=== PATIENT | male | born 1975 | race Caucasian/White ===

== ENCOUNTER 2017-03-31 12:59 | Day surgery (SDC) | payer OTHER ==
[~2017-03-31] VITALS: Ht 165.1 cm; Wt 98.3 kg
[2017-03-31 13:31] VITALS: BP 129/81; PULSE 62; TEMP 98.3
[2017-03-31] MEDS ORDERED: CIPRO 500MG TA500 MG PO (13:36)
[2017-03-31] MEDS ORDERED: NORCO 325 MG-7.1 TAB PO (13:37)
[2017-03-31 18:41] VITALS: BP 140/94; PULSE 60; TEMP 97.2
== END 2017-03-31 20:35 | disposition home or self-care (01) ==
LOC: SDCO 12:59 → SURG 18:35 → SDCO 20:35
DX: N20.1 Calculus of ureter (principal); Q63.1 Lobulated, fused and horseshoe kidney; I10 Essential (primary) hypertension; G47.33 Obstructive sleep apnea (adult) (pediatric); G43.909 Migraine, unspecified, not intractable, without status migrainosus; Z80.9 Family history of malignant neoplasm, unspecified; Z80.1 Family history of malignant neoplasm of trachea, bronchus and lung; Z83.3 Family history of diabetes mellitus
CPT/HCPCS: OP; C1769; C1894; C2617; J0690; J1100; J1170; J2270; J2405; J2704; J3010; J7120

== ENCOUNTER → 2017-06-16 | Outpatient (REF) ==
[~2017-06-16] MED LIST: CIPRO 500MG TA500 MG PO; NORCO 325 MG-7.1 TAB PO
== END ==
LOC: WSOH 10:26
DX: Z02.89 Encounter for other administrative examinations (principal)

== ENCOUNTER 2017-10-28 15:11 | Observation (INO) | payer OTHER ==
[2017-10-28] VITALS (7 sets, daily range): BP systolic 129–147; BP diastolic 77–88; PULSE 65–72; TEMP 97.7–98.5
[~2017-10-28] VITALS: Ht 165.1 cm; Wt 99.0 kg
[2017-10-28] MEDS ORDERED: FLOMAX 0.40.4 MG/CAP PO (16:37)
== END 2017-10-28 23:20 | disposition home or self-care (01) ==
LOC: SDCO 15:11 → SURG 20:44
DX: N20.1 Calculus of ureter (principal); I10 Essential (primary) hypertension; G47.33 Obstructive sleep apnea (adult) (pediatric); K21.9 Gastro-esophageal reflux disease without esophagitis; G43.909 Migraine, unspecified, not intractable, without status migrainosus; Z98.52 Vasectomy status; Z87.442 Personal history of urinary calculi; Z80.1 Family history of malignant neoplasm of trachea, bronchus and lung; Z83.3 Family history of diabetes mellitus
CPT/HCPCS: C1769; C2617; J0360; J0690; J1100; J1170; J2405; J2704; J3010; J7120; Q9967

== ENCOUNTER 2018-06-08 10:48 | Day surgery (SDC) | payer OTHER ==
[~2018-06-08] VITALS: Ht 165.1 cm; Wt 97.7 kg
[~2018-06-08 10:48] MED LIST changes: +FLOMAX 0.40.4 MG/CAP PO
[2018-06-08 11:06] VITALS: BP 126/89; PULSE 62; TEMP 98.1
[2018-06-08] MEDS ORDERED: ULTRAM 50MG TAB50 MG PO (11:20)
[2018-06-08 16:50] VITALS: BP 136/97; PULSE 91; TEMP 97.5
[2018-06-08 17:05] VITALS: BP 152/92; PULSE 63
[2018-06-08 17:19] VITALS: BP 134/76; PULSE 56
[2018-06-08 17:39] VITALS: BP 146/91; PULSE 66
== END 2018-06-08 18:11 | disposition home or self-care (01) ==
LOC: SDCO 10:48
DX: N20.1 Calculus of ureter (principal); I10 Essential (primary) hypertension; G47.33 Obstructive sleep apnea (adult) (pediatric); Z87.442 Personal history of urinary calculi; Q63.1 Lobulated, fused and horseshoe kidney; F43.10 Post-traumatic stress disorder, unspecified; K21.9 Gastro-esophageal reflux disease without esophagitis; Z79.899 Other long term (current) drug therapy
CPT/HCPCS: C1769; J0690; J1100; J2270; J2405; J2704; J3010; Q9967

== ENCOUNTER → 2019-07-18 | Outpatient (CLI) | payer OTHER ==
[~2019-07-18] MED LIST changes: +ULTRAM 50MG TAB50 MG PO
== END ==
LOC: COL.RAD 12:46
DX: M25.551 Pain in right hip (principal)
CPT/HCPCS: A9585; Q9967

== ENCOUNTER 2021-05-25 13:36 | Emergency (ER) | payer OTHER ==
[~2021-05-25] VITALS: Ht 165.1 cm; Wt 98.2 kg
[2021-05-25 13:52] VITALS: TEMP 98.3
[2021-05-25 14:40] LABS: BASO % 0.5 % (0.0-2.0); EOS # 0.1 (0.0-0.7); EOS % 1.6 % (0-4.0); GRAN # 2.2 (1.4-6.5); GRAN % 60.7 % (42.2-75.2); HEMATOCRIT 49.6 % (42.0-52.0); HEMOGLOBIN 17.6 g/dl (13.5-18.0); LYMPH # 0.9 (1.2-3.4); LYMPH % 24.6 % (20.0-51.0); MEAN CELL VOLUME 95 fl (80.0-100.0); MEAN CORPUSCULAR HEMOGLOBIN 34 pg (27.0-31.0); MEAN CORPUSCULAR HGB CONC 36 g/dl (33.0-37.0); MEAN PLATELET VOLUME 10.4 fl (7.4-10.4); MONO # 0.5 (0.1-0.6); MONO % 12.6 % (1.7-9.3); PLATELET COUNT 135 K/mm3 (130-400); RED BLOOD COUNT 5.25 M/mm3 (4.20-5.60); REDCELL DISTRIBUTION WIDTH-CV 12.2 % (11.5-14.5)
[2021-05-25] MEDS ORDERED: UROCIT-K 1010 MEQ PO (14:42)
[2021-05-25] MEDS ORDERED: ZYLOPRIM 100MG100 MG PO (14:42)
[2021-05-25] MEDS ORDERED: MULTIGEN1 TAB PO (14:43)
[2021-05-25 14:50] LABS: ALBUMIN 4.5 gm/dL (3.5-5.0); BILIRUBIN,TOTAL 0.7 mg/dL (0.0-1.0); CALCIUM 9.1 mg/dL (8.4-10.2); CREATININE, serum 0.9 (0.66-1.25); POTASSIUM 4.4 mmol/L (3.4-5.0); TOTAL PROTEIN 7.1 gm/dL (6.4-8.2)
[2021-05-25 16:20] VITALS: BP 145/96; PULSE 65
== END 2021-05-25 16:24 | disposition home or self-care (01) ==
LOC: COL.ER 13:36
PROVIDERS: Physician Assistant
DX: I10 Essential (primary) hypertension (principal)

== ENCOUNTER 2024-07-14 05:29 | Day surgery (SDC) | payer OTHER ==
[2024-07-14] VITALS (7 sets, daily range): BP systolic 90–137; BP diastolic 54–93; PULSE 47–56; TEMP 97.1–97.4
[~2024-07-14] VITALS: Ht 165.1 cm; Wt 72.3 kg
[~2024-07-14 05:29] MED LIST changes: +LR 1,000 ML IV SCH; +MULTIGEN1 TAB PO; +UROCIT-K 1010 MEQ PO; +ZYLOPRIM 100MG100 MG PO
[2024-07-14] MEDS ORDERED: Midazolam 2 MG/2 ML VIAL ONE (06:53)
[2024-07-14] MEDS ORDERED: Lidocaine PF 2% (20 MG/ML) 5 ML VIAL ONE (06:53)
[2024-07-14] MEDS ORDERED: fentaNYL 50 MCG/ML 2 ML VIAL ONE (06:53)
[2024-07-14] MEDS ORDERED: NS 10 ML IV ONE (06:53)
[2024-07-14] MEDS ORDERED: dexAMETHasone 10 MG/ML VIAL ONE (06:53)
[2024-07-14] MEDS ORDERED: Ketorolac 30 MG/ML VIAL ONE (06:53)
[2024-07-14] MEDS ORDERED: Ondansetron 4 MG/2 ML VIAL ONE (06:53)
[2024-07-14] MEDS ORDERED: Morphine 2 MG/1 ML VIAL [PACU/SDC ONLY] IV PRN (07:15)
[2024-07-14] MEDS ORDERED: HYDROmorphone 1 MG/1 ML SYRINGE [PACU/SDC ONLY] IV PRN (07:15)
[2024-07-14] MEDS ORDERED: Ondansetron 4 MG/2 ML VIAL IV PRN (07:15)
[2024-07-14] MEDS ORDERED: Lidocaine 1% w EPI (1:100,000) 10 ML Multi-Dose VIAL SQ ONE (07:28)
--- NOTE | 2024-07-14 08:18 | NUR ---
PATIENT RETURNED TO ROOM 8 VIA CART, SEDATED WITH ORAL AIRWAY IN PLACE. ADEQUATE VENTILATIONS ON ROOM AIR. SEE CHART FOR VITAL SIGNS. SYMMETRICAL CHEST RISE. SKIN COLOR NORMAL, WARM AND DRY. DRESSING TO LEFT FOOT CLEAN, DRY AND INTACT. POST OP SHOE TO LEFT FOOT IN PLACE. BILATERAL POST TIBIAL PULSES 2+. BLE SKIN COLOR NORMAL WARM/DRY. NURSE HANDOFF COMPLETED IN ROOM BY OR NURSE SONI AND YONNY MEJIA CRNA. YONNY MEJIA CRNA AND THIS NURSE REMAINED IN ROOM WITH PATIENT. SEE ANESTHESIA NOTE/RECORD FOR DETAILS. YONNY Villeda CRNA ADMINISTERED FLUMAZENIL. ORAL AIRWAY REMOVED. 0824: PATIENT RESPONSIVE TO VERBAL STIMULI, MOVING SPONTANEOUSLY. BREATHING REGULAR AND UNLABORED ON ROOM AIR. 0830: AWAKE AND ORIENTED X3. DENIES PAIN, NAUSEA AND SHORTNESS OF BREATH. PATIENT STATES "I'M TIRED". 0835: PATIENT HAD WATER, NO DYSPHAGIA. CALL LIGHT IN REACH.
--- NOTE | 2024-07-14 08:55 | NUR ---
PATIENT DENIES PAIN AND NAUSEA. PATIENT HAD CHOCOLATE PUDDING, NO DYSPHAGIA. CALL LIGHT IN REACH.
--- NOTE | 2024-07-14 09:31 | NUR ---
0911: PATIENT AWAKE AND ALERT. DISCHARGE TEACHING COMPLETED WITH PRINTED EDUCATION AND INSTRUCTIONS (FROM THE HOSPITAL AND 'S OFFICE) SENT HOME WITH PATIENT. FOLLOW UP APPOINTMENT CARD SENT HOME WITH PATIENT. PATIENT VERBALIZED UNDERSTANDING. 0929: PATIENT DENIES PAIN, NAUSEA AND SHORTNESS OF BREATH. TOLERATING FOOD/DRINK. LEFT FOOT DRESSING CLEAN, DRY AND INTACT. LEFT FOOT SHOE IN PLACE. PATIENT HAS NO COMPLAINTS. RIGHT HAND IV REMOVED. 0931: PATIENT CHANGED INTO PERSONAL CLOTHING AND MOVED TO WHEELCHAIR, (NON-WEIGHT BEARING TO LEFT FOOT) WITH EASE. PATIENT THANKED NURSING STAFF FOR CARE AND WAS DISCHARGED HOME WITH [facility].
== END 2024-07-14 09:31 | disposition home or self-care (01) ==
LOC: SDCO 05:29
DX: M21.612 Bunion of left foot (principal); M20.12 Hallux valgus (acquired), left foot; M10.9 Gout, unspecified; E55.9 Vitamin D deficiency, unspecified; R19.7 Diarrhea, unspecified; I10 Essential (primary) hypertension; R12 Heartburn; F41.9 Anxiety disorder, unspecified; Z79.899 Other long term (current) drug therapy
CPT/HCPCS: C1713; J0665; J0690; J1100; J1885; J2250; J2405; J2704; J3010; J7120